=== PATIENT | female | born 1985 | race Two or more races ===

== ENCOUNTER 2019-12-19 05:26 | Emergency (ER) | payer OTHER ==
[~2019-12-19] VITALS: Ht 167.6 cm; Wt 88.5 kg
[2019-12-19] MEDS ORDERED: PRENATE ELITE1 EAC2 (05:35)
[2019-12-19] MEDS ORDERED: OMEPRAZOLE40 MG (05:36)
== END 2019-12-19 08:53 | disposition home or self-care (01) ==
LOC: ER 05:26
DX: O26.891 Other specified pregnancy related conditions, first trimester (principal); R10.2 Pelvic and perineal pain; Z34.81 Encounter for supervision of other normal pregnancy, first trimester

== ENCOUNTER 2019-12-20 23:54 | Emergency (ER) | payer OTHER ==
[~2019-12-20] VITALS: Ht 167.6 cm; Wt 88.5 kg
[~2019-12-20 23:54] MED LIST: OMEPRAZOLE40 MG; PRENATE ELITE1 EAC2
[2019-12-21] MEDS ORDERED: KETOCONAZOLE15 GM TOP (00:56)
[2019-12-21] MEDS ORDERED: TRIAMCINOLONE A15 G4 TOP (00:56)
== END 2019-12-21 01:20 | disposition home or self-care (01) ==
LOC: ER 23:54
DX: B35.8 Other dermatophytoses (principal)

== ENCOUNTER 2021-05-06 19:25 | Emergency (ER) | payer OTHER ==
[~2021-05-06] VITALS: Ht 167.6 cm; Wt 89.8 kg
[~2021-05-06 19:25] MED LIST changes: +KETOCONAZOLE15 GM TOP; +TRIAMCINOLONE A15 G4 TOP
[2021-05-06] MEDS ORDERED: ZITHROMAX500 MG PO (22:12)
[2021-05-06] MEDS ORDERED: MEDROLPACK PO (22:12)
[2021-05-06] MEDS ORDERED: TUSNEL LIQUID178 ML PO (22:12)
== END 2021-05-06 22:22 | disposition home or self-care (01) ==
LOC: ER 19:25
DX: U07.1 COVID-19 (principal)